=== PATIENT | female | born 1935 | race Caucasian/White ===

== ENCOUNTER → 2016-12-14 19:24 | Outpatient (CLI) | payer MEDICARE, BC ==
[2015-07-27 12:27] VITALS: BMI 33.2
[~2016-12-14 19:24] MED LIST: ACETAMINOPHEN325 MG PO; AMOXICILLIN500 M1 PO; BENADRYL25 MG PO; CALTRATE 600 M600 M1 PO; CELEBREX200 MG PO; COUMADIN3 MG PO; COZAAR25 MG PO; FLUTICASONE PRO16 GM NASAL; GLUCOPHAGE500 MG PO; HUMALOG 30100 UNITS/ SC; HYDROCHLOROTH12.5 M1 PO; HYDROCODON-ACE1 EAC7 PO; IPRAT-ALBUT 0.5-3 ML INH; KLOR-CON 1010 MEQ PO; LACTINEX C1 TAB.CHEW PO; LASIX20 MG PO; LOPRESSOR25 MG PO; MULTIPLE VITAMI1 TA1 PO; MYSOLINE 50 MG50 MG PO; NEURONTIN600 MG PO; OMNICEF300 MG PO; PRILOSEC20 MG PO; REQUIP1 MG PO; SINEMET 25-1001 EACH PO; TRAZODONE HCL50 MG PO; ULTRAM50 MG PO; XARELTO10 MG PO; XARELTO15 MG PO; ZOCOR20 MG PO
[2016-12-14 20:04] LABS: HEMOGLOBIN A1C 5.7 % (4.8-6.0)
== END | disposition home or self-care (01) ==
LOC: D.LABREF 19:24
PROVIDERS: Family Medicine
DX: E11.9 Type 2 diabetes mellitus without complications (principal)

== ENCOUNTER → 2017-05-03 08:36 | Outpatient (CLI) | payer MEDICARE, BC ==
[2015-07-27 12:27] VITALS: BMI 33.2
[2017-05-03 08:58] LABS: BASOPHILS 0.3 % (0-2); EOSINOPHILS 3.2 % (0-7); HEMATOCRIT 42.6 % (36.0-48.0); HEMOGLOBIN 13.8 g/dL (12-16); IMMATURE GRANULOCYTES 0.6 % (0-5); LYMPHOCYTES 26.8 % (15-50); MCH 31.5 pg (26.0-34.0); MCHC 32.4 g/dL (31.0-37.0); MCV 97.3 fL (80.0-100.0); MEAN PLATELET VOLUME 9.3 fL (7.4-10.4); MONOCYTES 6.6 % (2-11); NEUTROPHILS 62.5 % (40-80); PLATELET COUNT 179 10x3/uL (130-400); RBC 4.38 10x6/uL (4.00-5.40); RDW 13.9 % (11.5-14.5); WBC 6.5 10x3/uL (4.8-10.8)
[2017-05-03 09:07] LABS: HEMOGLOBIN A1C 5.9 % (4.8-6.0)
[2017-05-03 09:32] LABS: ALBUMIN 3.4 g/dL (3.4-5.0); ANION GAP 11.6 mmol/L (8-16); BILIRUBIN - TOTAL 0.58 mg/dL (0.2-1.3); CALCIUM 9.7 mg/dL (8.5-10.1); CARBON DIOXIDE 29.9 mmol/L (21.0-32.0); CREATININE - SERUM 1.1 mg/dL (0.6-1.3); POTASSIUM - SERUM 4.5 mmol/L (3.5-5.1); PROTEIN - SERUM 7.4 g/dL (6.4-8.2); THYROID STIMULATING HORMONE 2.35 uIU/mL (0.36-3.74)
== END | disposition home or self-care (01) ==
LOC: D.LAB 08:36 → D.RAD 09:30
PROVIDERS: Family Medicine
DX: E11.9 Type 2 diabetes mellitus without complications (principal); R60.0 Localized edema; G20 Parkinson's disease; I10 Essential (primary) hypertension; R13.10 Dysphagia, unspecified

== ENCOUNTER → 2018-06-03 15:17 | Outpatient (CLI) | payer MEDICARE, BC ==
[2015-07-27 12:27] VITALS: BMI 33.2
[2018-06-03 16:03] LABS: BASOPHILS 0.3 % (0-2); EOSINOPHILS 4.9 % (0-7); HEMATOCRIT 42.4 % (36.0-48.0); IMMATURE GRANULOCYTES 0.4 % (0-5); LYMPHOCYTES 23.4 % (15-50); MCH 31.6 pg (26.0-34.0); MCV 95.7 fL (80.0-100.0); MEAN PLATELET VOLUME 10.1 fL (7.4-10.4); MONOCYTES 6.5 % (2-11); NEUTROPHILS 64.5 % (40-80); PLATELET COUNT 185 10x3/uL (130-400); RBC 4.43 10x6/uL (4.00-5.40); RDW 13.3 % (11.5-14.5); WBC 6.8 10x3/uL (4.8-10.8)
[2018-06-03 16:30] LABS: ALBUMIN 3.5 g/dL (3.4-5.0); ANION GAP 5.5 mmol/L (8-16); BILIRUBIN - TOTAL 0.57 mg/dL (0.2-1.3); CALCIUM 9.2 mg/dL (8.5-10.1); CARBON DIOXIDE 32.9 mmol/L (21.0-32.0); CHOL - HDL RATIO 3.9 ratio (2.3-4.1); CREATININE - SERUM 1.2 mg/dL (0.6-1.3); LDL-HDL RATIO 2.4 ratio (1.5-3.5); POTASSIUM - SERUM 4.4 mmol/L (3.5-5.1); PROTEIN - SERUM 7.1 g/dL (6.4-8.2)
== END | disposition home or self-care (01) ==
LOC: D.LAB 11:30
PROVIDERS: Family Medicine
DX: Z00.01 Encounter for general adult medical examination with abnormal findings (principal); E78.00 Pure hypercholesterolemia, unspecified; E11.9 Type 2 diabetes mellitus without complications; I10 Essential (primary) hypertension; R60.9 Edema, unspecified

== ENCOUNTER 2020-05-13 15:35 | Emergency (ER) | payer MEDICARE, BC ==
[~2020-05-13] VITALS: Ht 165.1 cm; Wt 84.1 kg
[2020-05-13 15:48] VITALS: Ht 165.1 cm; Wt 84.1 kg
[2020-05-13 18:17] VITALS: BP 129/77
== END 2020-05-13 18:17 | disposition home or self-care (01) ==
LOC: D.ER 15:35
DX: S20.219A Contusion of unspecified front wall of thorax, initial encounter (principal); S09.90XA Unspecified injury of head, initial encounter; S70.01XA Contusion of right hip, initial encounter; S00.03XA Contusion of scalp, initial encounter; S40.011A Contusion of right shoulder, initial encounter; W01.10XA Fall on same level from slipping, tripping and stumbling with subsequent striking against unspecified object, initial encounter; Y93.9 Activity, unspecified; Y92.9 Unspecified place or not applicable; Z79.01 Long term (current) use of anticoagulants; I10 Essential (primary) hypertension; G20 Parkinson's disease; E11.40 Type 2 diabetes mellitus with diabetic neuropathy, unspecified; Z79.84 Long term (current) use of oral hypoglycemic drugs

== ENCOUNTER 2020-08-20 22:11 | Emergency (ER) | payer MEDICARE, BC ==
[~2020-08-20] VITALS: Ht 165.1 cm; Wt 79.4 kg
[2020-08-20 22:13] VITALS: Ht 165.1 cm; Wt 79.4 kg
[2020-08-20 22:40] LABS: BASOPHILS 0.2 % (0-2); EOSINOPHILS 2.9 % (0-7); HEMATOCRIT 37.7 % (36.0-48.0); HEMOGLOBIN 12.3 g/dL (12-16); IMMATURE GRANULOCYTES 0.4 % (0-5); LYMPHOCYTES 21.5 % (15-50); MCH 31.3 pg (26.0-34.0); MCHC 32.6 g/dL (31.0-37.0); MCV 95.9 fL (80.0-100.0); MEAN PLATELET VOLUME 10.5 fL (7.4-10.4); PLATELET COUNT 179 10x3/uL (130-400); RBC 3.93 10x6/uL (4.00-5.40); WBC 5.5 10x3/uL (4.8-10.8)
[2020-08-20 22:48] LABS: CALC OSMOLALITY 285 mosm/kg (275-300); CARBON DIOXIDE 31.6 mmol/L (21.0-32.0); CHLORIDE - SERUM 103 mmol/L (98-107); CREATININE - SERUM 1.2 mg/dL (0.6-1.3); GLUCOSE 116 mg/dL (74-106); POTASSIUM - SERUM 3.1 mmol/L (3.5-5.1); SODIUM 142 mmol/L (136-145); UREA NITROGEN 18 mg/dL (7-18); eGFR NON AFRICAN AMERICAN 45 mL/min (90-120)
[2020-08-20 22:54] LABS: ALBUMIN 3.4 g/dL (3.4-5.0); ALKALINE PHOSPHATASE 82 U/L (30-120); ALT (SGPT) < 6 U/L (10-68); AMYLASE - SERUM 78 U/L (25-115); BILIRUBIN - TOTAL 0.56 mg/dL (0.2-1.3); LIPASE 174 U/L (73-393); PROTEIN - SERUM 6.3 g/dL (6.4-8.2)
[2020-08-21 00:21] LABS: BILIRUBIN NEGATIVE (NEGATIVE); KETONE NEGATIVE (NEGATIVE); NITRITE NEGATIVE (NEGATIVE); UROBILINOGEN NORMAL mg/dL (< 2)
[2020-08-21 00:22] LABS: BACTERIA FEW HPF (NONE SEEN); EPITHELIAL CELLS 0-5 /hpf (0-5); WHITE CELLS - URINE 3 HPF (0-4)
[2020-08-21] MEDS ORDERED: CHRONULAC30 ML PO (02:21)
[2020-08-21 03:07] VITALS: BP 137/76
== END 2020-08-21 03:07 | disposition home or self-care (01) ==
LOC: D.ER 22:11
PROVIDERS: Family Medicine
DX: K59.00 Constipation, unspecified (principal); R10.9 Unspecified abdominal pain; E87.6 Hypokalemia; R93.5 Abnormal findings on diagnostic imaging of other abdominal regions, including retroperitoneum; E11.40 Type 2 diabetes mellitus with diabetic neuropathy, unspecified; I10 Essential (primary) hypertension; G20 Parkinson's disease